=== PATIENT | male | born 1945 | race Caucasian/White ===

== ENCOUNTER → 2024-04-25 06:41 | Day surgery (SDC) | payer OTHER, SELFPAY | LOC: GI 06:41 | PROVIDERS: ATTENDING PHYSICIAN Specialist | DX: Z12.11 Encounter for screening for malignant neoplasm of colon (principal); D12.3 Benign neoplasm of transverse colon; K57.30 Diverticulosis of large intestine without perforation or abscess without bleeding; Z86.010 Personal history of colon polyps | CPT/HCPCS: 45380; 88305 ==

== ENCOUNTER → 2024-10-31 10:34 | Outpatient (REF) | payer OTHER, SELFPAY | LOC: HWRAD 10:34 | PROVIDERS: ATTENDING PHYSICIAN Physician Assistant Medical | DX: M25.552 Pain in left hip (principal) | CPT/HCPCS: 73502 ==

== ENCOUNTER → 2025-03-19 10:11 | Outpatient (REF) | payer OTHER, SELFPAY ==
[2025-03-19 11:08] LABS: % Basophils 0.6 % (0-2); % Eosinophils 4.1 % (0-6); % Immature Granulocytes 0.3 % (0-0.5); % Monocytes 10.3 % (1.7-9.3); % Neutrophils 70.7 % (42.2-75.2); Absolute Eosinophils 0.3 10^3/uL (0-0.7); Absolute Lymphocytes 0.9 10^3/uL (1.2-3.4); Absolute Monocytes 0.7 10^3/uL (0.1-0.6); Absolute Neutrophils 4.6 10^3/uL (1.4-6.5); Hemoglobin 14.6 g/dL (13.0-18.0); Mean Corp Hgb Conc. 32.4 g/dL (33.0-37.0); Mean Corpuscular Hgb 31.6 pg (27.0-31.0); Mean Corpuscular Volume 97.4 fL (80.0-94.0); Nucleated Red Blood Cells % 0 % (-); Platelet Count 241 10^3/uL (130-400); Red Blood Cell Count 4.62 10^6/uL (4.70-6.10); White Blood Cell Count 6.5 10^3/uL (4.8-10.8)
[2025-03-19 11:55] LABS: Blood Urea Nitrogen 19 mg/dl (9-20); Calcium 9.5 mg/dl (8.4-10.2); Carbon Dioxide 26 mmol/L (22-30); Chloride 108 mmol/L (98-107); Glucose 100 mg/dl (70-99); Potassium 4.6 mmol/L (3.5-5.1); Sodium 141 mmol/L (135-145); eGFR > 60.00
== END ==
LOC: REG 10:11
PROVIDERS: ATTENDING PHYSICIAN Specialist
DX: Z01.818 Encounter for other preprocedural examination (principal)
CPT/HCPCS: 36415; 80048; 85025; 93005

== ENCOUNTER 2025-05-12 17:58 | Outpatient (RCR) | payer OTHER, SELFPAY | END 2025-05-12 23:59 | disposition home or self-care (01) | LOC: RPT 17:58 | PROVIDERS: ATTENDING PHYSICIAN Specialist; FAMILY PHYSICIAN Internal Medicine | DX: Z47.1 Aftercare following joint replacement surgery (principal); Z96.642 Presence of left artificial hip joint; Z73.6 Limitation of activities due to disability | CPT/HCPCS: 97110; 97140; 97162; 97530 ==

== ENCOUNTER 2025-05-13 22:31 | Inpatient (IN) | payer OTHER, SELFPAY ==
[2025-05-13] VITALS (7 sets, daily range): BP systolic 113–140; BP diastolic 63–76; BMI 22.6
[2025-05-13 20:02] LABS: Hematocrit 17.7 % (39.0-52.0); Hemoglobin 5.8 g/dL (13.0-18.0); Mean Corp Hgb Conc. 32.8 g/dL (33.0-37.0); Mean Corpuscular Volume 97.3 fL (80.0-94.0); Nucleated Red Blood Cells % 0.2 % (-); Platelet Count 282 10^3/uL (130-400); Red Cell Dist. Width 13.4 % (11.5-14.5)
[2025-05-13 20:08] LABS: INR 1.11; PT 14.8 Sec (11.4-14.6)
[2025-05-13 20:13] LABS: ALT (SGPT) 22 U/L (0-50); AST (SGOT) 23 U/L (17-59); Albumin 3.3 g/dl (3.5-5.0); Alkaline Phosphatase 84 U/L (38-126); Blood Urea Nitrogen 39 mg/dl (9-20); Calcium 8.2 mg/dl (8.4-10.2); Carbon Dioxide 23 mmol/L (22-30); Chloride 109 mmol/L (98-107); Glucose 186 mg/dl (70-99); Potassium 3.9 mmol/L (3.5-5.1); Sodium 135 mmol/L (135-145); Total Protein 5.2 g/dl (6.3-8.2); eGFR > 60.00
[2025-05-13 20:25] LABS: Troponin I 0.023 ng/ml
--- NOTE | 2025-05-13 22:00 | ED.GENMED ---
History of Present Illness
General
Chief Complaint: Abnormal Lab Value
Source: patient and spouse
Exam Limitations: none
Time Seen by Provider: 05/13/25 21:01
Nursing documentation reviewed up to this point in time: agreed with
History of Present Illness
History of Present Illness:
Patient status post left hip replacement with Dr. Chiu, presents to ED secondary to worsening generalized weakness, dizziness, and shortness of breath over the past 3 days. Denies fever or chills. Denies nausea or vomiting. Denies increased
leg pain or swelling. However, patient has noticed mild left ankle swelling. Denies chest pain. Denies new trauma. Denies loss of appetite. Patient has been taking aspirin 325 mg daily since surgery. Denies previous history of similar symptoms.
Past History
Past History
ED Past Medical History: Other (Tongue resection for cancer, left neck lymph node resection,)
Social History
Tobacco: Smoker
Alcohol: None
Family History
Family History: Unable to obtain
Review of Systems
Review of Systems
Allergies reviewed?: Yes
All Other Systems: ROS reviewed and negative except as documented in HPI and ROS
Constitutional: Reports no symptoms
Respiratory: Reports trouble breathing
Cardiac: Reports no symptoms; Denies chest pain
ABD/GI: Reports no symptoms; Denies vomiting, diarrhea or bloody stools
: Reports no symptoms; Denies bleeding
Musculoskeletal: Reports no symptoms
Neurological: Reports dizzy and weakness
Phy Exam
Physical Exam
Physical Exam:
Physical Exam
General: no apparent distress, not acutely ill. afebrile
Head: nc/at. eomi
Neck: supple. normal range of motion.
Heart: s1/s2 regular rate and rhythm
Lungs: no acute respiratory distress. clear bilaterally
Abdomen: normal bowel sounds. not tender. rectal exam (maroon stool, grossly heme positive)
Neuro: alert and oriented x 3. no focal neurological deficits
Skin: no rash, pale appearing
Psychiatric: well kept. interactive and cooperative
Extremities: no edema. no calf tenderness.
Course
Orders/Labs/Results
Orders:
Orders
05/13/25 19:41
Electrocardiogram (*1) Urgent
Reason for Study: Other
Other Reason for Exam: Respiratory Distress
Cardiac Monitoring- Treatment ONCE
EKG- Treatment ONCE
IV Insert/Care/Rem.- Treatment PRN
CR Chest - 2 Views Urgent
Comment:
Reason For Exam: respiratory distress
O2 Therapy [RESP] Urgent
Titrate/Wean O2 to maintain O2 sat greater than (%): 93
Special Instructions: TO MAINTAIN CONTINUOUS O2 SATS >/= 93%
Pulse Ox/cont/shift [RESP] Urgent
Quantity: 1
Special Instructions: continuous pulse ox
05/13/25 19:52
Complete Blood Count/With Diff Urgent
Comprehensive Metabolic Panel Urgent
Ferritin Urgent
Comment: ADD ON
Folate Urgent
Comment: ADDED
Iron Urgent
Comment: ADD ON
Prothrombin Time Urgent
Total Iron Binding Urgent
Comment: ADD ON
Troponin I Urgent
Vitamin B12 Urgent
Comment: ADDED
05/13/25 21:06
Type And Crossmatch [Type+Screen] Urgent
05/13/25 21:24
ABO2 Urgent
BBK Wristband Number:
Associate notified that ABO2 has been ordered: [id number]
Date: 05/13/25
Time: 21:16
Executive Coordinator ID: [id number]
05/13/25 22:00
* Blood Bank Products Urgent
Blood Bank Products: *Packed RBC Leuko(PRBC's)
Quantity: 2
Transfuse Today: Yes
Reason: Bleeding
IV Insert/Care/Rem.- Treatment PRN
Pantoprazole [Protonix IV] 40 mg IV NOW STA
05/13/25 22:24
Admit/Transfer Patient As Directed
Co-Sign Provider:
Level of Care: Inpatient admission
Assign to:: Telemetry
Physician / Group: desire
Diagnosis: UGIB
Reason for Telemetry: Arrhythmia
Date to Stop Telemetry: 05/16/25
Time to Stop Telemetry: 11:00
Reason for Hospitalization: UGIB
Expected length of stay greater than two midnights?: Yes
ELOS- Estimated Length of Stay in days: 2
I certify the patient meets the requirements for IP care: Yes
PRN Pain Medication Management As Directed
May give lesser potent ordered pain med per pt: Yes
preference::
Protocol:: Medication orders for pain may be administered in a
manner that supports deferring to patient preference
when the pt is:
- Requesting an ordered lesser potent pain medication.
Least to most potent pain medications are defined
as: acetaminophen < NSAID < tramadol < opioids
(morphine, oxycodone, hydromorphone).
- Requesting a lesser dose of the same medication IF
ORDERED.
- Requesting a less intrusive route of administration
if both routes are prescribed by the provider (PO <
IV).
05/13/25 22:25
Code Status As Directed
Resuscitation Status: Full Code
05/14/25 02:24
Add On- LAB Routine
Tests Added?: b12, folate, iron, ferritin, tibc
GASTROINTESTINAL CONSULT Routine
Consulting Provider: Carlton Montoya
Was physician already notified: Yes
Activity As Directed
Activity Level: As Tolerated
Pneumatic Compression Sleeves As Directed
Type: Knee high
Vital Signs As Directed
Frequency: Per unit guidelines
DX Deep Vein Thrombosis Video Routine
05/14/25 Breakfast
NPO
Allow oral meds: Yes
Allow clear liquids: Sips of Clears
05/14/25 08:00
Pantoprazole [Protonix IV] 40 mg IV BID
05/14/25 08:05
Complete Blood Count/With Diff IN AM
Comprehensive Metabolic Panel IN AM
05/16/25 11:00
DC Protocol for Telemetry ONCE
Abnormal Lab Results
05/13/25 05/13/25
19:52 21:06
WBC 12.8 H 10^3/uL
(4.8-10.8)
RBC 1.82 L 10^6/uL
(4.70-6.10)
Hgb 5.8 L* g/dL
(13.0-18.0)
Hct 17.7 L* %
(39.0-52.0)
MCV 97.3 H fL
(80.0-94.0)
MCH 31.9 H pg
(27.0-31.0)
MCHC 32.8 L g/dL
(33.0-37.0)
Abs Immat Gran (auto) 0.1 H 10^3/uL
(0-0.05)
Absolute Neuts (auto) 10.7 H 10^3/uL
(1.4-6.5)
Absolute Lymphs (auto) 1.1 L 10^3/uL
(1.2-3.4)
Absolute Monos (auto) 0.7 H 10^3/uL
(0.1-0.6)
Neutrophils % 83.9 H %
(42.2-75.2)
Lymphocytes % 8.6 L %
(20.5-51.1)
PT 14.8 H Sec
(11.4-14.6)
Chloride 109 H mmol/L
(98-107)
BUN 39 H mg/dl
(9-20)
Glucose 186 H mg/dl
(70-99)
Calcium 8.2 L mg/dl
(8.4-10.2)
Total Protein 5.2 L g/dl
(6.3-8.2)
Albumin 3.3 L g/dl
(3.5-5.0)
Crossmatch IS Only See Detail
05/13/25 19:52
05/13/25 19:52
Vital Signs
Initial and Last Documented VS:
Initial Vital Signs
Temp Pulse Resp BP Pulse Ox
97.8 F 100 18 113/74 100
05/13/25 19:35 05/13/25 19:35 05/13/25 19:35 05/13/25 19:35 05/13/25 19:35
Last Documented Vital Signs
Temp Pulse Resp BP Pulse Ox
97.8 F 65 12 144/83 100
05/14/25 13:45 05/14/25 14:15 05/14/25 14:15 05/14/25 14:15 05/14/25 14:15
MDM/Problems Addressed
MDM/Problems Addressed:
H&H noted, significant anemia compared to blood work from March 2025.
Blood transfusion consent in the chart. 2 units of PRBC ordered. Protonix IV given.
Discussed with on-call GI physician, Dr. Montoya, via [facility] text. Patient will be admitted for further evaluation and treatment.
*Pulse Oximetry
SaO2: 100
Oxygen Mode of Delivery: Room air
Patient hypoxic: no
*Critical Care Note
Total Time (30-74mins, 75-104mins- exclusive of procedures): Not Applicable
ED Attending Note
-
Portions of this chart may have been created with voice recognition software.� Occasional wrong word or��sound alike� substitutions may have occurred due to the inherent limitations of voice recognition software.
Discharge Plan
Departure
Patient Disposition: Admit
Date of Disposition: 05/13/25
Time of Disposition: 22:05
Admit to: Telemetry
Presentation/result/management discussed w/ accepting MD/DO: Hospitalist
Discharge Problem:
GI bleed, Anemia
Interventions
Interventions:
*Risk Screen - Suicide Last Done: 05/13/25 19:35
*General Assessment Last Done: 05/13/25 19:35
*Neglect/Abuse Screening Last Done: 05/13/25 19:35
*ED- Fall Risk Assessment Last Done: 05/13/25 19:35
*ED COVID-19 Vaccine History Last Done: 05/13/25 20:43
*Nursing Disposition Last Done: 05/14/25 02:42
ED- Neurological Assessment Last Done: 05/13/25 20:43
ED- Cardiac Assessment Last Done: 05/13/25 20:43
ED Swallowing Screen Last Done: 05/13/25 20:43
Discharge Date and Time
Discharge Date/Time: 05/14/25 02:43
[2025-05-13] MEDS: PROTONIX IV 40 MG IV (22:08)
--- NOTE | 2025-05-13 22:31 | HPS.HSE ---
Family Physician
-
Family Physician: Gabriela Mosqueda PA-C
Chief Complaint
-
dizziness, shortness of breath
History of Present Illness
79-year-old male past medical history of melanoma, osteoarthritis status post left hip surgery, hypercholesteremia, presenting for progressive weakness and dizziness and shortness of breath. No chest pain. He underwent left hip surgery [address] Chiu. She was started on 325 mg aspirin postoperatively. He has been taking ibuprofen for the past month for hip pain, denies abdominal pain. Occasional nausea but no vomiting. He did not notice any black stool or blood in the
stool.
He had colonoscopy 6 months ago which was normal.
Drinks alcohol occasionally. Denies smoking.
No family history of GI issues.
Medical History
Past Medical History
Past Medical History: Reports Other (melanoma, osteoarthritis status post left hip surgery, hypercholesteremia)
Past Surgical History: Reports None
Social History
Tobacco: Non-smoker
Alcohol: None
Drug: None
Family History
Family History: Not pertinent
Allergies / Home Medications
Allergies reflects when Allergies were last updated in [facility].
Home Medications with original date entered in [facility]
Allergy/Medication List:
Allergies
Allergy/AdvReac Type Severity Reaction Status Date / Time
piperacillin (From Zosyn) Allergy Hives Verified 08/02/21 08:22
tazobactam (From Zosyn) Allergy Hives Verified 08/02/21 08:22
Home Medications
apixaban 5 mg tablet (Eliquis) 5 mg PO BID 07/29/21
simvastatin 40 mg tablet 40 mg PO QPM 07/29/21
acetaminophen 500 mg tablet (Tylenol Extra Strength) 1,000 mg (2 x 500 mg) PO Q6HPRN PRN mild pain #1 tab 08/02/21
oxycodone 5 mg tablet 5 mg PO Q4HPRN PRN breakthrough/severe pain #7 tabs 08/02/21
polyethylene glycol 3350 17 gram oral powder packet 17 grams PO DAILYPRN PRN constipation #1 packet 08/02/21
Review of Systems
-
History Source: Patient
A 12 point ROS was completed and negative except as noted: Yes
Constitutional: Reports No Symptoms
EENT: Reports No Symptoms
Respiratory: Reports See HPI
Cardiac: Reports No Symptoms
Abdomen/GI: Reports No Symptoms
: Reports No Symptoms
Musculoskeletal: Reports No Symptoms
Skin: Reports No Symptoms
Neurological: Reports No Symptoms
Endocrine: Reports No Symptoms
Hematologic/Lymphatic: Reports No Symptoms
Psych: Reports No Symptoms
Physical Exam
Vital Signs
Vital Signs
Temp Pulse Resp BP Pulse Ox
97.8 F 92 18 133/73 100
05/13/25 19:35 05/13/25 20:52 05/13/25 19:35 05/13/25 20:51 05/13/25 22:02
Physical Exam
General: Well Developed, Well Nourished and No Apparent Distress
HEENT: NormoCephalic, Moist mucous membranes and Atraumatic
Respiratory: Clear
Cardiac: S1/S2 and Regular Rhythm; No Murmur or Rub
GI: Soft, Non Tender, Non Distended and Normal Bowel Sounds; No Organomegaly
Rectal: Deferred by Provider
Musculoskeletal: No Clubbing, No Cyanosis and No Edema
Skin: No Rash
Neuro: Nonfocal/grossly intact
Laboratory Results
-
05/13/25 19:52
05/13/25 19:52
Laboratory Results
PT 14.8 Sec (11.4-14.6) H 05/13/25 19:52
INR 1.11 05/13/25 19:52
Total Bilirubin 0.3 mg/dl (0.2-1.3) 05/13/25 19:52
AST 23 U/L (17-59) 05/13/25 19:52
ALT 22 U/L (0-50) 05/13/25 19:52
Alkaline Phosphatase 84 U/L (38-126) 05/13/25 19:52
Troponin I 0.023 ng/ml 05/13/25 19:52
Data Reviewed
-
Lab Data: Labs Reviewed by me
Old Records: Reviewed
Impression/Plan
-
IMPRESSION:
PLAN:
# Acute blood loss anemia
# Upper GI bleeding secondary to NSAIDs/aspirin
-Maroon-colored stool
-Appears macrocytic
- Hemoglobin 5.8
-Hold aspirin
- 2 units of blood, with goal of hemoglobin above 8 before EGD tomorrow as per GI
- Check iron studies, B12 and folate
- Protonix 40 twice daily
- N.p.o. past midnight
Left hip surgery 2 weeks ago
- Hold aspirin started postoperatively
-Supposed to have lucía removed tomorrow, ortho should be notified tomorrow
History of throat cancer
Melanoma
Osteoarthritis
Hypercholesterolemia
Full code
DVT prophylaxis-SCDs
N.p.o.
[2025-05-13 23:35] LABS: Iron 67 ug/dl (49-181)
[2025-05-13 23:44] LABS: Total Iron Binding Capacity 285 ug/dl (261-462)
[2025-05-14] VITALS (28 sets, daily range): BP systolic 103–151; BP diastolic 55–91; BMI 24.2
[2025-05-14 00:07] LABS: Ferritin 116.0 ng/ml (17.9-464.0)
[2025-05-14] MEDS: TYLENOL 650 MG PO ×2 (04:24→08:36)
[2025-05-14 04:49] LABS: Folate 15.0 ng/ml (2.76-20); Vitamin B12 333 pg/ml (239-931)
--- NOTE | 2025-05-14 06:13 | CON.GI ---
Consultation
-
Date/Time Consultation Requested: 05/14/25, 223
Date/Time Consultation Performed: 05/14/25, 612
Requesting Provider: Barney Ashton
Performing Provider: Carlton Montoya
Reason for Consultation: UGIB
Medical History
Chief Complaint / HPI
Chief Complaint: Dizziness, SOB
History of Present Illness:
Mr. Norton is a 79 y.o male with a past medical history of hypercholesteremia, melanoma, colon polyps, and osteoarthritis s/p recent left-hip surgery who presented to the ED with progressive weakness and SOB. Found to have maroon-colored stools and
Hgb 5.8 concerning for UGIB. GI has been consulted for further evaluation and management.
Patient states he underwent left hip surgery [address] Chiu and was started on 325 mg aspirin postoperatively. He has been taking significant ibuprofen for the past month for hip pain as well, but denies abdominal pain. Does note
mild nausea but no vomiting. Denies any melena or bloody stoolsl. He had colonoscopy 6 months ago which was notable for one small colon polyp (path w/ TA) and diverticulosis, but otherwise normal. Prior EGD back on 01/2012 which was grossly
unremarkable. He follows closely with his primary [employer], Dr. Rodriguez. Otherwise, he denies any prior history of GI bleeding in the past. He denies any significant alcohol use. No other antiplatelets or He anticoagulants. He does note
previously being on eliquis in the past, however he has not been on this over the past 4-5 years. He is hoping to go home today as he notes his is having a cardiac ablation tomorrow.
In the ED, patient was afebrile and HD-stable. Labs notable for BUN 39 and Multiskill Operator 0.9 and normal LFTs. CBC with WBC 12.8, Hgb 5.8 (previously 14.6 on 03/19/25), and plts 282. INR 1.11. He was started on IV PPI and ordered 2 uPRBCs and admitted to
medicine for further management.
Past Medical History
Past Medical History: Other (melanoma, osteoarthritis status post left hip surgery, hypercholesteremia, colon polyps)
Past Surgical History: Other (L hip surgery)
Social History
Tobacco: Non-Smoker
Alcohol: None
Drug: None
Family History
Family History: Reviewed & Not Pertinent
Allergies / Home Medications
Allergy/AdvReac Type Severity Reaction Status Date / Time
piperacillin (From Zosyn) Allergy Hives Verified 08/02/21 08:22
tazobactam (From Zosyn) Allergy Hives Verified 08/02/21 08:22
�Medication �Instructions �Recorded
simvastatin 40 mg tablet 40 mg PO QPM 07/29/21
acetaminophen 500 mg tablet 1,000 mg (2 x 500 mg) PO Q6HPRN 08/02/21
(Tylenol Extra Strength) PRN mild pain #1 tab
oxycodone 5 mg tablet 5 mg PO Q4HPRN PRN 08/02/21
breakthrough/severe pain #7 tabs
polyethylene glycol 3350 17 gram 17 grams PO DAILYPRN PRN 08/02/21
oral powder packet constipation #1 packet
Review of Systems
-
All other systems: A 12 pt ROS was Negative except as stated above in HPI
Vital Signs
Temp Pulse Resp BP Pulse Ox
97.9 F 75 18 128/72 99
05/14/25 06:02 05/14/25 06:02 05/14/25 06:02 05/14/25 06:02 05/14/25 06:02
Physical Exam
Exam
General: Well Developed, Well Nourished and No Apparent Distress
HEENT: Normocephalic, Anicteric and Moist Mucous Membranes
Respiratory: Other (Normal WOB on room air)
GI: Soft, Non Tender and Non Distended
Skin: Warm
Neuro: AO x 3 and Nonfocal/Grossly Intact
Psych: Calm
Results
WBC 12.8 10^3/uL (4.8-10.8) H 05/13/25 19:52
Hgb 5.8 g/dL (13.0-18.0) L* 05/13/25 19:52
Hct 17.7 % (39.0-52.0) L* 05/13/25 19:52
MCV 97.3 fL (80.0-94.0) H 05/13/25 19:52
Plt Count 282 10^3/uL (130-400) 05/13/25 19:52
Absolute Neuts (auto) 10.7 10^3/uL (1.4-6.5) H 05/13/25 19:52
PT 14.8 Sec (11.4-14.6) H 05/13/25 19:52
INR 1.11 05/13/25 19:52
Sodium 135 mmol/L (135-145) 05/13/25 19:52
Potassium 3.9 mmol/L (3.5-5.1) 05/13/25 19:52
Chloride 109 mmol/L (98-107) H 05/13/25 19:52
Carbon Dioxide 23 mmol/L (22-30) 05/13/25 19:52
BUN 39 mg/dl (9-20) H 05/13/25 19:52
Creatinine 0.9 mg/dL (0.7-1.3) 05/13/25 19:52
Calcium 8.2 mg/dl (8.4-10.2) L 05/13/25 19:52
Total Bilirubin 0.3 mg/dl (0.2-1.3) 05/13/25 19:52
AST 23 U/L (17-59) 05/13/25 19:52
ALT 22 U/L (0-50) 05/13/25 19:52
Alkaline Phosphatase 84 U/L (38-126) 05/13/25 19:52
Diagnostic Image Results: As detailed above
Assessment / Plan
-
Mr. Norton is a 79 y.o male with a past medical history of hypercholesteremia, melanoma, colon polyps, and osteoarthritis s/p recent left-hip surgery who presented to the ED with progressive weakness and SOB. Found to have maroon-colored stools and
Hgb 5.8 concerning for UGIB. GI has been consulted for further evaluation and management.
#UGIB
#Maroon Colored Stool
#Symptomatic Anemia
#Acute Blood Loss Anemia
#Recent ASA/NSAID Use
Impression: Patient presenting with symptomatic anemia and found to have maroon colored stools in the ED along with elevated BUN (39) and acute blood loss anemia with Hgb 5s (from baseline 14s). Etiology most consistent with an acute UGIB likely
secondary to NSAID-induced PUD given his ASA and NSAIDs. He denies any prior history of GI bleeding in the past and no other concern for LGIB. Currently he remains HD-stable without evidence of compensatory tachycardia and denies any further bloody
stools since admission. He has been transfused 2 uPRBCs pending repeat CBC. He would benefit from an EGD for further evaluation for both diagnostic and potential therapeutic purposes.
Recommendations:
- Keep strict NPO, ensure two large bore IVs
- F/u post-transfusion CBC, transfuse for goal Hgb > 8.0
- Trend Hgb with serial CBC
- Agree with anemia w/u given macrocytic anemia
- IV PPI 40 mg BiD
- Plan for EGD later today for further evaluation of his maroon colored stools and suspected UGIB. See EGD report for additional findings and recommendations
- Reviewed benefits and risks of endoscopy at bedside
- Strict avoidance of all NSAIDs, aspirin remains on hold
- Rest of care as per primary team
GI will continue to follow. Please call with any questions or concerns.
Data Reviewed
-
Old Records: Reviewed
-
-
Thank you for consultation and allowing me to participate in the patient's care. Please call the environmental field services technician GI physician during the after hours with any questions or concerns.
[2025-05-14] MEDS: NSS (PRESERVATIVE FREE) 10 ML IV (07:43)
[2025-05-14] MEDS: PROTONIX IV 40 MG IV (07:43)
[2025-05-14 09:24] LABS: Hematocrit 21.0 % (39.0-52.0); Hemoglobin 7.1 g/dL (13.0-18.0); Mean Corp Hgb Conc. 33.8 g/dL (33.0-37.0); Mean Corpuscular Volume 92.5 fL (80.0-94.0); Nucleated Red Blood Cells % 0 % (-); Platelet Count 225 10^3/uL (130-400); Red Cell Dist. Width 15.1 % (11.5-14.5)
[2025-05-14 09:53] LABS: ALT (SGPT) 22 U/L (0-50); AST (SGOT) 22 U/L (17-59); Albumin 2.9 g/dl (3.5-5.0); Alkaline Phosphatase 79 U/L (38-126); Blood Urea Nitrogen 31 mg/dl (9-20); Calcium 8.2 mg/dl (8.4-10.2); Carbon Dioxide 21 mmol/L (22-30); Chloride 113 mmol/L (98-107); Estimated Creatinine Clearance 84 ml/min; Glucose 105 mg/dl (70-99); Potassium 4.0 mmol/L (3.5-5.1); Sodium 138 mmol/L (135-145); Total Protein 4.8 g/dl (6.3-8.2); eGFR > 60.00
[2025-05-14 14:27] LABS: Hematocrit 20.2 % (39.0-52.0); Hemoglobin 6.6 g/dL (13.0-18.0)
--- NOTE | 2025-05-14 15:05 | W.PN.HOSP.TC ---
Today's Communication/Plan
-
Transferred to IMU because of significant upper GI bleed
Follow H&H
Start on IV PPI drip
Keep NPO.
Assessment / Plan
Assessment / Plan
# Acute blood loss anemia
# Acute upper GI bleeding
#Bleeding duodenal ulcers
Status post EGD this morning which showed large amount of clotted blood in the gastric antrum and gastric body. He was also fresh red blood clot in the duodenal bulb and throughout the duodenum. There was a nonbleeding duodenal ulcer with a flat
pigmented spot. Nonbleeding duodenal ulcer with a clean ulcer base. Active oozing from the large duodenal ulcer with visible bleeding vessel noted and it was injected with epi and treated with cautery.
-Follow H&H posttransfusion.
- Start on IV PPI drip
-Hold aspirin
-Keep him n.p.o. for now.
Left hip surgery 2 weeks ago
- Hold aspirin started postoperatively
-Supposed to have lucía removedw, ortho should be notified tomorrow
History of throat cancer
Melanoma
Osteoarthritis
Hypercholesterolemia
Full code
DVT prophylaxis-SCDs
N.p.o.
Discussed with GI about the findings and treatment plan.
Will move to IMU for closer monitoring.
Total time spent on today's encounter was 52 minutes which included time spent in counseling the patient/family regarding diagnosis and treatment plan as listed above, goals of care, and symptom management. Case was discussed with nursing staff,
specialists, and care coordinators/case management. All labs and imaging personally reviewed by me. Remainder the time spent in detailed review of previous records, lab data, imaging, and other medical provider documentation.
Anticipated Discharge: > 48 hours
Subjective/Interval History
-
Date of Service: May 14, 2025
Seen in PACU. Patient had a EGD which showed blood in the stomach.
He denies any nausea, abdominal pain.
Denies any shortness of breath, chest pain or dizziness.
Objective Data
-
Labs:
Laboratory Results
05/14/25 05/14/25 05/14/25
08:05 14:11 14:11
WBC 9.4
Hgb 7.1 L D 6.6 L* Cancelled
Hct 21.0 L 20.2 L*
Plt Count 225 D
Sodium 138
Potassium 4.0
Chloride 113 H
Carbon Dioxide 21 L
BUN 31 H
Creatinine 0.8
Glucose 105 H
Calcium 8.2 L
Total Bilirubin 0.6
AST 22
ALT 22
Alkaline Phosphatase 79
05/14/25 05/14/25
14:11 22:00
WBC
Hgb Pending
Hct Cancelled Pending
Plt Count
Sodium
Potassium
Chloride
Carbon Dioxide
BUN
Creatinine
Glucose
Calcium
Total Bilirubin
AST
ALT
Alkaline Phosphatase
Vital Signs:
Vital Signs
Temp Pulse Resp BP Pulse Ox
97.8 F 65 12 144/83 100
05/14/25 13:45 05/14/25 14:15 05/14/25 14:15 05/14/25 14:15 05/14/25 14:15
I&O
05/13/25 05/14/25 05/15/25
06:59 06:59 06:59
Intake Total 500 / 500
Balance 500 / 500
Physical Exam
-
General: Comfortable
Respiratory: Clear to Auscultation and Non Labored Respirations; Negative Accessory Resp Muscle Use
Cardiac: Regular Rhythm and S1/S2; Negative Tachycardic
GI: Soft, Nontender, Nondistended and Normal Bowel Sounds
Musculoskeletal: No Edema
Neuro: AO x 3
Psych: Calm; Negative Confused
Data Reviewed
-
Labs: Labs Reviewed by me
[2025-05-14] MEDS: D5/0.45%NACL 1000 IV (15:39)
[2025-05-14] MEDS: PROTONIX 100 IV ×2 (15:39→23:13)
--- NOTE | 2025-05-14 16:15 | PTCARENOTE ---
Received patient into room 3351 from PACU. Pt is aaox3, pleasant. Pt reports nausea prior to arriving to the floor but is better now. Denies any pain. SR on the monitor. Vital signs stable. was at bedside and updated. Protonix gtt and IVF
infusing. made aware of blood count and ordered a unit of PRBCs. Assessment and care as documented.
--- NOTE | 2025-05-14 18:29 | PTCARENOTE ---
1 unit of PRBCs infusing, no reactions noted.
[2025-05-14] MEDS: NSS (PRESERVATIVE FREE) IV (20:49)
[2025-05-14 22:04] LABS: Glucose - Point of Care 116 mg/dl (70-99)
[2025-05-14 23:08] LABS: Hematocrit 21.9 % (39.0-52.0); Hemoglobin 7.3 g/dL (13.0-18.0)
[2025-05-15] VITALS (13 sets, daily range): BP systolic 121–157; BP diastolic 73–113; PULSE 73; O2SAT 99
--- NOTE | 2025-05-15 01:26 | PTCARENOTE ---
received patient from previous RN. Patient AAOx3. unit of PRBC transfusing when this RN came onto shift. Repeat H&H 7.3. TT BOWL TURNER results, will labs again in morning. Assessment and vital signs as charted. Call yip in reach.
[2025-05-15] MEDS: TYLENOL 650 MG PO ×4 (02:07→22:05)
[2025-05-15] MEDS: D5/0.45%NACL 1000 IV (05:23)
[2025-05-15 05:50] LABS: Hematocrit 21.2 % (39.0-52.0); Hemoglobin 7.1 g/dL (13.0-18.0)
--- NOTE | 2025-05-15 06:07 | W.PN.GI.CBS2 ---
Today's Communication / Plan
-
Stable H/h and normalization of BUN 31 -> 18 post-EGD. No signs to suggest recurrent UGIB, however still high risk given his ulcer (FC Ib). Favor transfusing additional 1 uPRBC given Hgb 7.1 and continue IV PPI gtt x 72 hrs. Okay to start CLD this
afternoon. See rest of care as outlined below.
Assessment / Plan
-
Mr. Norton is a 79 y.o male with a past medical history of hypercholesteremia, melanoma, colon polyps, and osteoarthritis s/p recent left-hip surgery who presented to the ED with progressive weakness and SOB. Found to have maroon-colored stools and
Hgb 5.8 concerning for UGIB. GI has been consulted for further evaluation and management.
#Brisk UGIB 2/2
#Duodenal Ulcers #NSAID-induced PUD
#Symptomatic Anemia
#Acute Blood Loss Anemia
#Recent ASA/NSAID Use
Impression: Patient presenting with symptomatic anemia and found to have maroon colored stools in the ED along with elevated BUN (39) and acute blood loss anemia with Hgb 5s (from baseline 14s). Etiology most consistent with an acute UGIB likely
secondary to NSAID-induced PUD given his ASA and NSAIDs. He denies any prior history of GI bleeding in the past and no other concern for LGIB. Currently he remains HD-stable without evidence of compensatory tachycardia and denies any further bloody
stools since admission. He has been transfused 2 uPRBCs on admission prior to EGD.
S/p EGD 05/14/25: Large amount of fresh red/clotted blood throughout stomach and duodenum which was cleared, large actively oozing ulcer with a visible oozing vessel (FC Ib) within duodenal bulb s/p epi injection/bipolar cautery and hemospray for
additional hemostasis, two other ulcers within duodenal bulb without high-risk stigmata (FC IIc and FC III) however also applied with hemospray given location, otherwise grossly normal
- S/p 3 uPRBCs with last transfusion for Hgb 6.6 (suspect lower/hemoconcentrated) with repeat Hgb 7.3. BUN now normalized 39 -> 31 -> 18 post-EGD along with stable Hgb 7.3 -> 7.1. Otherwise, without any melena, maroon colored stools or other signs
to suggest recurrent GI bleeding.
Recommendations:
- Keep NPO, okay to start CLD this afternoon (24 hrs post-EGD / Endoclot)
- Given 1 additional uPRBC this AM for Hgb 7.1
- Trend Hgb with CBC q 12 hrs
- IV PPI gtt (05/14- ) x 72 hrs
- No plans for a repeat EGD at this time as without signs to suggest recurrent GI bleeding
- Melena to be expected over next 24-48 hours. However, notify GI if concern for recurrent brisk bleeding (drop in Hgb, maroon stools, etc)
- Strict avoidance of all NSAIDs, aspirin remains on hold
- Avoidance of all anticoagulants/antiplatelets
- Rest of care as per primary team
GI will continue to follow. Please call with any questions or concerns.
Subjective
Subjective
Date of Service: May 15, 2025
- S/p EGD 05/14/25: Large amount of fresh red/clotted blood throughout stomach and duodenum which was cleared, large actively oozing ulcer with a visible oozing vessel (FC Ib) within duodenal bulb s/p epi injection/bipolar cautery and hemospray for
additional hemostasis, two other ulcers within duodenal bulb without high-risk stigmata (FC IIc and FC III) however also applied with hemospray given location, otherwise grossly normal
- Kept NPO and transferred to IMU
- BUN now normalized 39 -> 31 -> 18 post-EGD
- Hgb remains stable 7.3 -> 7.1 post-EGD
- Otherwise, no acute events overnight
Denies any melena or maroon colored bowel movements overnight or early this AM. No abdominal pain or nausea/vomiting.
Objective
Data Reviewed
Laboratory Data:
Laboratory Results
PT 14.8 Sec (11.4-14.6) H 05/13/25 19:52
INR 1.11 05/13/25 19:52
Total Bilirubin 0.6 mg/dl (0.2-1.3) 05/14/25 08:05
AST 22 U/L (17-59) 05/14/25 08:05
ALT 22 U/L (0-50) 05/14/25 08:05
Alkaline Phosphatase 79 U/L (38-126) 05/14/25 08:05
Vital Signs and I&O:
Vital Signs
Temp Pulse Resp BP Pulse Ox
97.6 F 63 17 140/74 95
05/15/25 05:16 05/15/25 05:15 05/15/25 05:15 05/15/25 04:00 05/15/25 05:15
I&O
05/13/25 05/14/25 05/15/25
06:59 06:59 06:59
Intake Total 500 / 500 300 / 300
Output Total 1200 / 1200
Balance 500 / 500 -900 / -900
Physical Exam
Physical Exam
HEENT: Anicteric and Moist mucous membranes
Cardiology: Other (RR on tele)
Pulmonary: Other (Normal WOB on room air)
GI: Soft, Non Distended and Non Tender
Extremities: No Edema
Neuro: Non Focal
[2025-05-15 06:50] LABS: Mean Corp Hgb Conc. 33.5 g/dL (33.0-37.0); Mean Corpuscular Volume 93.0 fL (80.0-94.0); Platelet Count 223 10^3/uL (130-400); Red Cell Dist. Width 16.8 % (11.5-14.5)
[2025-05-15 07:18] LABS: Blood Urea Nitrogen 18 mg/dl (9-20); Calcium 8.2 mg/dl (8.4-10.2); Carbon Dioxide 23 mmol/L (22-30); Chloride 113 mmol/L (98-107); Estimated Creatinine Clearance 95 ml/min; Glucose 110 mg/dl (70-99); Potassium 3.8 mmol/L (3.5-5.1); Sodium 137 mmol/L (135-145); eGFR > 60.00
[2025-05-15] MEDS: NSS (PRESERVATIVE FREE) IV ×2 (07:27→19:28)
--- NOTE | 2025-05-15 08:03 | W.PN.UPDATE ---
Update Note
Progress Note Update
Status post left total hip arthroplasty April 29, [address] Chiu. Unfortunately he has developed postoperative anemia and endoscopy has found bleeding ulcer. Appreciate medical teams efforts for patient. His left hip incision has small
hematoma. No warmth, erythema or pain. Incision was cleaned with Betadine and then skin closed removed. Steri-Strips placed along with Aquacel dressing. Hip range of motion revealed flexion 90 degrees, internal rotation 15 degrees, external
rotation 30 degrees all without pain. Calf is soft and nontender. Distal neurovascular was intact. He should continue with formal physical therapy, weightbearing as tolerated with walker and observe hip precautions. SCDs for DVT prophylactics.
Follow-up with Dr. Chiu in 2 weeks to check his progress
[2025-05-15] MEDS: PROTONIX 100 IV ×2 (09:20→19:28)
--- NOTE | 2025-05-15 09:20 | W.PN.HOSP.TC ---
Today's Communication/Plan
-
Start on clear liquid diet
Follow H&H
Continue with PPI IV drip
Assessment / Plan
Assessment / Plan
# Acute blood loss anemia
# Acute upper GI bleeding
#Bleeding duodenal ulcers
Status post EGD 05/14 morning which showed large amount of clotted blood in the gastric antrum and gastric body. He was also fresh red blood clot in the duodenal bulb and throughout the duodenum. There was a nonbleeding duodenal ulcer with a flat
pigmented spot. Nonbleeding duodenal ulcer with a clean ulcer base. Active oozing from the large duodenal ulcer with visible bleeding vessel noted and it was injected with epi and treated with cautery.
- Continue with IV PPI drip
-Hold aspirin
- H&H today this morning is 7.1. Patient is totally asymptomatic and hemodynamically stable. Normalized the BUN noted. Suspect no further active bleeding. Would favor holding transfusion. He already had 3 units of PRBC. Iron stores are
adequate. Repeat H&H later in the day and transfuse as needed. Aim to keep H&H more than 7.
Left hip surgery 2 weeks ago
- Hold aspirin started postoperatively
- Colony removed by Ortho today.
- Consider Lovenox for the next 2 weeks after discharge. Currently in sequential teds for DVT prophylaxis with GI bleed.
History of throat cancer
Melanoma
Osteoarthritis
Hypercholesterolemia
Full code
DVT prophylaxis-SCDs
Discussed with RN
Total time spent on today's encounter was 52 minutes which included time spent in counseling the patient/family regarding diagnosis and treatment plan as listed above, goals of care, and symptom management. Case was discussed with nursing staff,
specialists, and care coordinators/case management. All labs and imaging personally reviewed by me. Remainder the time spent in detailed review of previous records, lab data, imaging, and other medical provider documentation.
Anticipated Discharge: > 48 hours
Subjective/Interval History
-
Date of Service: May 15, 2025
Patient without any symptoms.
Denies any abdominal pain or discomfort. No nausea or hematemesis. No bowel movement or no rectal bleeding.
Denies any weakness or tiredness or fatigue.
Denies any chest pain or shortness of breath.
No lightheadedness.
Objective Data
-
Labs:
Laboratory Results
05/14/25 05/15/25 05/15/25
23:01 05:29 05:52
WBC 8.2 Cancelled
Hgb 7.3 L 7.1 L Cancelled
Hct 21.9 L 21.2 L Cancelled
Plt Count 223 Cancelled
Sodium 137
Potassium 3.8
Chloride 113 H
Carbon Dioxide 23
BUN 18
Creatinine 0.7
Glucose 110 H
Calcium 8.2 L
05/15/25
15:00
WBC Pending
Hgb Pending
Hct Pending
Plt Count Pending
Sodium
Potassium
Chloride
Carbon Dioxide
BUN
Creatinine
Glucose
Calcium
Vital Signs:
Vital Signs
Temp Pulse Resp BP Pulse Ox
97.6 F 63 17 140/74 95
05/15/25 07:05 05/15/25 05:15 05/15/25 05:15 05/15/25 04:00 05/15/25 05:15
I&O
05/14/25 05/15/25 05/16/25
06:59 06:59 06:59
Intake Total 500 / 500 300 / 300
Output Total 1200 / 1200
Balance 500 / 500 -900 / -900
Physical Exam
-
General: Comfortable
Respiratory: Clear to Auscultation and Non Labored Respirations; Negative Accessory Resp Muscle Use
Cardiac: Regular Rhythm and S1/S2; Negative Tachycardic
GI: Soft and Nontender
Neuro: AO x 3
Data Reviewed
-
Labs: Labs Reviewed by me
--- NOTE | 2025-05-15 09:48 | PTCARENOTE ---
Patient AAOx3. Reports pain in hip, tylenol given with relief. Protonix gtt infusing per orders. Currently NPO, with plans to start CLD at lunch. L hip dressing CDI, lucía removed by ortho today. VSS. Patient making needs known. Continuing to
closely monitor.
[2025-05-15 16:10] LABS: Hematocrit 23.5 % (39.0-52.0); Hemoglobin 7.9 g/dL (13.0-18.0); Mean Corp Hgb Conc. 33.6 g/dL (33.0-37.0); Mean Corpuscular Volume 94.4 fL (80.0-94.0); Platelet Count 232 10^3/uL (130-400); Red Cell Dist. Width 17.0 % (11.5-14.5)
--- NOTE | 2025-05-15 16:11 | CM ---
Patient with Hx Left hip surgery 2 weeks ago with Dx UGI bleed, anemia. Room air. Clear liquids. Receiving IVF, Protonix gtt. PT recommends outpt therapy.
Met with patient who resides with his in a 2 story house with 1 [address].
The patient was independent in ADLs and ambulation.
DME - [facility], [facility]
Prior VN, can't remember agency
SNF - none
PCP - Gabriela Mosqueda
Pharmacy - [facility], [place]
Spoke with daughter Sammy; patient already going to outpatient PT and he will resume at d/c.
No CM d/c needs identified.
Plan home.
[2025-05-15] MEDS: D5/0.45%NACL IV (18:43)
[2025-05-16] VITALS (14 sets, daily range): BP systolic 102–140; BP diastolic 52–86; PULSE 76; BMI 24.2
--- NOTE | 2025-05-16 01:41 | PTCARENOTE ---
Patient aao x3 at start of shift, affect pleasant, able to make needs known. Patient c/o pain 2/10 earlier this evening. PRN Tylenol administered with positive results. RN manpreet RAMOS, new order noted for ice to LLE to assist with pain control. Call
yip within reach, will continue to monitor patient closely.
[2025-05-16] MEDS: PROTONIX 100 IV ×2 (04:44→16:49)
[2025-05-16] MEDS: TYLENOL 650 MG PO ×4 (04:56→20:09)
[2025-05-16 05:02] LABS: Hematocrit 24.0 % (39.0-52.0); Hemoglobin 8.0 g/dL (13.0-18.0); Mean Corp Hgb Conc. 33.3 g/dL (33.0-37.0); Mean Corpuscular Volume 94.9 fL (80.0-94.0); Platelet Count 231 10^3/uL (130-400); Red Cell Dist. Width 17.3 % (11.5-14.5)
[2025-05-16] MEDS: NSS (PRESERVATIVE FREE) IV ×2 (07:43→19:46)
--- NOTE | 2025-05-16 12:00 | PTCARENOTE ---
Patient AAOx3, no complaints. Protonix infusing per orders. Patient making needs known. VSS. Will closely monitor.
--- NOTE | 2025-05-16 12:42 | W.PN.HOSP.TC ---
Today's Communication/Plan
-
Protonix drip. Monitor hemoglobin
Assessment / Plan
Assessment / Plan
Physical exam:
General: Well Developed, Well Nourished and No Apparent Distress
HEENT: Normocephalic, Atraumatic and Moist Mucous Membranes
Respiratory: Clear to Auscultation; Negative Wheezes, Rales or Rhonchi
Cardiac: Regular Rhythm and S1/S2
GI: Soft, Nontender and Nondistended
Musculoskeletal: No Clubbing, No Cyanosis and No Edema
Neuro: Awake, Alert and Oriented
Psych: Calm
A/P:
# Acute blood loss anemia
# Acute upper GI bleeding
#Bleeding duodenal ulcers
Status post EGD 05/14 morning which showed large amount of clotted blood in the gastric antrum and gastric body. He was also fresh red blood clot in the duodenal bulb and throughout the duodenum. There was a nonbleeding duodenal ulcer with a flat
pigmented spot. Nonbleeding duodenal ulcer with a clean ulcer base. Active oozing from the large duodenal ulcer with visible bleeding vessel noted and it was injected with epi and treated with cautery.
- Continue with IV PPI drip
-Hold aspirin
- H&H today this morning is 8.0 Patient is totally asymptomatic and hemodynamically stable. Normalized the BUN noted. Suspect no further active bleeding.
Left hip surgery 2 weeks ago
- Hold aspirin started postoperatively
- Mary Kay removed by Ortho yesterday
- Consider Lovenox for the next 2 weeks after discharge. Currently in sequential teds for DVT prophylaxis with GI bleed.
History of throat cancer
Melanoma
Osteoarthritis
Hypercholesterolemia
Full code
DVT prophylaxis-SCDs
Total time spent on today's encounter was 52 minutes which included time spent in counseling the patient/family regarding diagnosis and treatment plan as listed above, goals of care, and symptom management. Case was discussed with nursing staff,
specialists, and care coordinators/case management. All labs and imaging personally reviewed by me. Remainder the time spent in detailed review of previous records, lab data, imaging, and other medical provider documentation.
Anticipated Discharge: > 48 hours
Subjective/Interval History
-
Date of Service: May 16, 2025
Patient had dark bowel movement. Denies abdominal pain or nausea. Tolerating clear liquid diet.
Objective Data
-
Labs:
Laboratory Results
05/16/25
04:51
WBC 9.6
Hgb 8.0 L
Hct 24.0 L
Plt Count 231
Vital Signs:
Vital Signs
Temp Pulse Resp BP Pulse Ox
98.1 F 81 17 140/86 96
05/16/25 06:36 05/16/25 11:30 05/16/25 11:30 05/16/25 10:00 05/16/25 08:00
I&O
05/15/25 05/16/25 05/17/25
06:59 06:59 06:59
Intake Total 300 / 300
Output Total 1200 / 1200 1723 / 1723 575 / 575
Balance -900 / -900 -1723 / -1723 -575 / -575
--- NOTE | 2025-05-16 14:25 | W.PN.GI.CBS2 ---
Addendum entered and electronically signed by Olivia Ferrer MD 05/16/25 19:59:
I saw and examined the patient.
The F[employer]NACE [employer]DER or PA's note was reviewed and I agree with the note.
Comment: 79-year-old male past medical history as below presenting with progressive weakness and shortness of breath found to have hemoglobin of 5.8 in the setting of NSAIDs and high-dose aspirin after hip surgery. Underwent endoscopy with
[facility] May 14 and found to have active GI bleeding with large duodenal ulcers and visible vessel which was treated with epinephrine, cautery, Hemospray. Hemoglobin has remained stable. We discussed at length diagnosis of duodenal ulcers,
importance of avoiding NSAIDs. Plan for IV PPI drip until tomorrow and then can change to Protonix twice a day. On full liquid diet which can be advanced to low residue diet tomorrow if hemoglobin remains stable.
Original Note:
Today's Communication / Plan
-
As per plan
Assessment / Plan
-
Mr. Norton is a 79 y.o male with a past medical history of hypercholesteremia, melanoma, colon polyps, and osteoarthritis s/p recent left-hip surgery who presented to the ED with progressive weakness and SOB. Found to have maroon-colored stools and
Hgb 5.8 concerning for UGIB. GI has been consulted for further evaluation and management.
#Brisk UGIB 2/2
#Duodenal Ulcers #NSAID-induced PUD
#Symptomatic Anemia
#Acute Blood Loss Anemia
#Recent ASA/NSAID Use
Impression: Patient presenting with symptomatic anemia and found to have maroon colored stools in the ED along with elevated BUN (39) and acute blood loss anemia with Hgb 5s (from baseline 14s). Etiology most consistent with an acute UGIB likely
secondary to NSAID-induced PUD given his ASA and NSAIDs. He denies any prior history of GI bleeding in the past and no other concern for LGIB. Currently he remains HD-stable without evidence of compensatory tachycardia and denies any further bloody
stools since admission. He has been transfused 2 uPRBCs on admission prior to EGD.
S/p EGD 05/14/25: Large amount of fresh red/clotted blood throughout stomach and duodenum which was cleared, large actively oozing ulcer with a visible oozing vessel (FC Ib) within duodenal bulb s/p epi injection/bipolar cautery and hemospray for
additional hemostasis, two other ulcers within duodenal bulb without high-risk stigmata (FC IIc and FC III) however also applied with hemospray given location, otherwise grossly normal
- S/p 3 uPRBCs with last transfusion for Hgb 6.6 (suspect lower/hemoconcentrated) with repeat Hgb 7.3. BUN now normalized 39 -> 31 -> 18 post-EGD along with stable Hgb 7.3 -> 7.1. Otherwise, without any melena, maroon colored stools or other signs
to suggest recurrent GI bleeding. Hemoglobin remained stable and is increased to 8.0. No further signs of bleeding.
Recommendations:
-Start full liquid diet
- Check CBC this evening then daily.
-BMP in a.m.
- IV PPI gtt until 05/17/2025 ( 72 hrs), then can change to pantoprazole 40 mg twice daily
- No plans for a repeat EGD at this time as without signs to suggest recurrent GI bleeding
- Melena to be expected over next 24-48 hours. Will eventually turn to normal stool. Discussed that if after brown stool returns back to melena or red to notify.
- however, notify GI if concern for recurrent brisk bleeding (drop in Hgb, maroon stools, etc)
- Strict avoidance of all NSAIDs, aspirin remains on hold
- Avoidance of all anticoagulants/antiplatelets
- Rest of care as per primary team
GI will continue to follow. Please call with any questions or concerns.
Subjective
Subjective
Date of Service: May 16, 2025
Patient without any signs of active GI bleeding. Only had 1 bowel movement since endoscopy this was solid and dark. To be expected. Hemoglobin has remained completely stable. Hemoglobin 8.0 up from 7.9. Continues on pantoprazole drip. To be
continued at least until Monday. Tolerating clear liquid diet without any issues. No abdominal pain. Vital signs stable.
Objective
Data Reviewed
Laboratory Data:
Laboratory Results
05/16/25 04:51
05/15/25 05:52
Laboratory Results
PT 14.8 Sec (11.4-14.6) H 05/13/25 19:52
INR 1.11 05/13/25 19:52
Total Bilirubin 0.6 mg/dl (0.2-1.3) 05/14/25 08:05
AST 22 U/L (17-59) 05/14/25 08:05
ALT 22 U/L (0-50) 05/14/25 08:05
Alkaline Phosphatase 79 U/L (38-126) 05/14/25 08:05
Vital Signs and I&O:
Vital Signs
Temp Pulse Resp BP Pulse Ox
97.8 F 81 16 125/79 96
05/16/25 11:04 05/16/25 13:45 05/16/25 13:45 05/16/25 12:15 05/16/25 08:00
I&O
05/15/25 05/16/25 05/17/25
06:59 06:59 06:59
Intake Total 300 / 300
Output Total 1200 / 1200 1723 / 1723 575 / 575
Balance -900 / -900 -1723 / -1723 -575 / -575
Physical Exam
Physical Exam
HEENT: Anicteric
Cardiology: Normal Sinus Rhythm
Pulmonary: Clear
GI: Soft, Non Distended, Non Tender and Normal Bowel Sounds
Extremities: No Edema
Neuro: Non Focal
[2025-05-16 17:51] LABS: Hematocrit 23.9 % (39.0-52.0); Hemoglobin 7.9 g/dL (13.0-18.0); Mean Corp Hgb Conc. 33.1 g/dL (33.0-37.0); Mean Corpuscular Volume 95.6 fL (80.0-94.0); Platelet Count 230 10^3/uL (130-400); Red Cell Dist. Width 17.2 % (11.5-14.5)
[2025-05-16] MEDS: LIPITOR 20 MG PO (18:18)
--- NOTE | 2025-05-16 21:37 | PTCARENOTE ---
Patient aao x3 since start of shift. C/o pain 11/25 earlier this shift, verbalizes pain well controlled by tylenol and ice. PRN Tylenol administered around 20:00 with positiver effects noted. BS active x4, patient tolerated full diet well. NSR on the
monitor, lungs cta throughout, putting out clear yellow urine with use of urinal Patient using call yip appropriately, call yip within reach. Will continue to monitor patient closely.
[2025-05-17] VITALS (19 sets, daily range): BP systolic 89–145; BP diastolic 51–85
[2025-05-17] MEDS: PROTONIX 100 IV ×3 (01:35→19:56)
[2025-05-17] MEDS: TYLENOL 650 MG PO ×5 (02:28→20:56)
[2025-05-17 04:48] LABS: Hematocrit 22.3 % (39.0-52.0); Hemoglobin 7.4 g/dL (13.0-18.0); Mean Corp Hgb Conc. 33.2 g/dL (33.0-37.0); Mean Corpuscular Volume 94.9 fL (80.0-94.0); Platelet Count 215 10^3/uL (130-400); Red Cell Dist. Width 17.4 % (11.5-14.5)
[2025-05-17 05:06] LABS: Blood Urea Nitrogen 12 mg/dl (9-20); Calcium 8.4 mg/dl (8.4-10.2); Carbon Dioxide 25 mmol/L (22-30); Chloride 110 mmol/L (98-107); Estimated Creatinine Clearance 84 ml/min; Glucose 111 mg/dl (70-99); Potassium 4.3 mmol/L (3.5-5.1); Sodium 137 mmol/L (135-145); eGFR > 60.00
[2025-05-17] MEDS: NSS (PRESERVATIVE FREE) IV ×2 (07:39→19:48)
--- NOTE | 2025-05-17 11:00 | VATNOTE ---
primary RN alerted VAT RN of right arm infiltrate. R forearm red, tender, less than +1 edema. piv was removed prior to VAT assessment. arm elevated, heat applied. new iv placed. will cont to monitor
[2025-05-17 11:14] LABS: Hematocrit 26.7 % (39.0-52.0); Hemoglobin 8.8 g/dL (13.0-18.0)
--- NOTE | 2025-05-17 11:53 | W.PN.HOSP.TC ---
Addendum entered and electronically signed by Lopez York MD 05/17/25 16:00:
Also repeat another h/h stat
Addendum entered and electronically signed by Lopez York MD 05/17/25 15:37:
Hold on transfer out of IMU yet. Mildly hypotensive so we will give bolus 500 cc NS and reevaluate.
Original Note:
Today's Communication/Plan
-
PPI. Monitor hemoglobin
Assessment / Plan
Assessment / Plan
Physical exam:
General: Well Developed, Well Nourished and No Apparent Distress
HEENT: Normocephalic, Atraumatic and Moist Mucous Membranes
Respiratory: Clear to Auscultation; Negative Wheezes, Rales or Rhonchi
Cardiac: Regular Rhythm and S1/S2
GI: Soft, Nontender and Nondistended
Musculoskeletal: No Clubbing, No Cyanosis and No Edema
Neuro: Awake, Alert and Oriented
Psych: Calm
A/P:
# Acute blood loss anemia
# Acute upper GI bleeding
#Bleeding duodenal ulcers
Status post EGD 05/14 morning which showed large amount of clotted blood in the gastric antrum and gastric body. He was also fresh red blood clot in the duodenal bulb and throughout the duodenum. There was a nonbleeding duodenal ulcer with a flat
pigmented spot. Nonbleeding duodenal ulcer with a clean ulcer base. Active oozing from the large duodenal ulcer with visible bleeding vessel noted and it was injected with epi and treated with cautery.
- Continue with IV PPI drip
-Hold aspirin
- H&H today this morning is 7.4 Patient is totally asymptomatic and hemodynamically stable. Normalized the BUN noted. Suspect no further active bleeding. We repeated another H&H and hemoglobin came back at 8.8. Will advance diet and planning to
switch hemoglobin to twice a day either later today or in a.m. PT reeval for discharge disposition and can transfer out of IMU today
Left hip surgery 2 weeks ago
- Hold aspirin started postoperatively
- Mary Kay removed by Ortho yesterday
- Consider Lovenox for the next 2 weeks after discharge. Currently in sequential teds for DVT prophylaxis with GI bleed.
History of throat cancer
Melanoma
Osteoarthritis
Hypercholesterolemia
Full code
DVT prophylaxis-SCDs
Time spent 35 minutes
Anticipated Discharge: Within 24 hours
Subjective/Interval History
-
Date of Service: May 17, 2025
No abdominal pain nausea or vomiting. Tolerating diet. Afebrile
Objective Data
-
Labs:
Laboratory Results
05/17/25 05/17/25
04:25 11:05
WBC 9.5
Hgb 7.4 L 8.8 L
Hct 22.3 L 26.7 L
Plt Count 215
Sodium 137
Potassium 4.3
Chloride 110 H
Carbon Dioxide 25
BUN 12
Creatinine 0.8
Glucose 111 H
Calcium 8.4
Vital Signs:
Vital Signs
Temp Pulse Resp BP Pulse Ox
98.1 F 77 15 120/85 97
05/17/25 07:15 05/17/25 10:00 05/17/25 10:00 05/17/25 10:00 05/17/25 10:20
I&O
05/16/25 05/17/25 05/18/25
06:59 06:59 06:59
Output Total 1723 / 1723 1575 / 1575 475 / 475
Balance -1723 / -1723 -1575 / -1575 -475 / -475
[2025-05-17] MEDS: NSS 500 IV (15:40)
[2025-05-17] MEDS: LIPITOR 20 MG PO (16:45)
[2025-05-17 17:05] LABS: Hematocrit 23.2 % (39.0-52.0); Hemoglobin 7.6 g/dL (13.0-18.0)
--- NOTE | 2025-05-17 17:47 | W.PN.GI.CBS2 ---
Today's Communication / Plan
-
monitor hb and blood pressure and for overt bleeding
Assessment / Plan
-
79-year-old male past medical history as below presenting with progressive weakness and shortness of breath found to have hemoglobin of 5.8 in the setting of NSAIDs and high-dose aspirin after hip surgery. Underwent endoscopy with Dr. Montoya May 14
and found to have active GI bleeding with large duodenal ulcers and visible vessel which was treated with epinephrine, cautery, Hemospray. Hemoglobin has remained stable. Plan for IV PPI drip until tomorrow and then can change to Protonix twice a
day (technically today 72 hours will continue an extra day with hypotension. Will put on clears in AM to ensure hb remains stable.
Subjective
Subjective
Date of Service: May 17, 2025
No BM, Hb stable but did have an episode today felt weak and systolic BP dropped to 80s but he endorses not drinking much fluid
Objective
Data Reviewed
Laboratory Data:
Laboratory Results
05/17/25 16:56
05/17/25 04:25
Laboratory Results
PT 14.8 Sec (11.4-14.6) H 05/13/25 19:52
INR 1.11 05/13/25 19:52
Total Bilirubin 0.6 mg/dl (0.2-1.3) 05/14/25 08:05
AST 22 U/L (17-59) 05/14/25 08:05
ALT 22 U/L (0-50) 05/14/25 08:05
Alkaline Phosphatase 79 U/L (38-126) 05/14/25 08:05
Vital Signs and I&O:
Vital Signs
Temp Pulse Resp BP Pulse Ox
98.4 F 77 15 120/85 97
05/17/25 11:28 05/17/25 10:00 05/17/25 10:00 05/17/25 10:00 05/17/25 10:20
I&O
05/16/25 05/17/25 05/18/25
06:59 06:59 06:59
Output Total 1723 / 1723 1575 / 1575 475 / 475
Balance -1723 / -1723 -1575 / -1575 -475 / -475
Physical Exam
Physical Exam
GI: Non Distended and Non Tender
--- NOTE | 2025-05-17 18:37 | PTCARENOTE ---
pt tolerating regular diet without nausea or abdominal discomfort. oob to chair this am and ambulated to br with min assist. this afternoon pt bp lower than this morning. pt states he feels tired and weak but alert and conversant. physician made
aware. 500ml iv fluid bolus given with inprovement of bp. stat H/H sent per order and resulted 7.6.
[2025-05-18] VITALS (8 sets, daily range): BP systolic 101–139; BP diastolic 63–82
[2025-05-18] MEDS: TYLENOL 650 MG PO ×3 (00:56→09:26)
--- NOTE | 2025-05-18 03:00 | PTCARENOTE ---
Caring for patient overnight. aaox3, pleasant. C/o 10/25 pain in L hip, tylenol given prn. No SOB/other pain. Denies dizziness/lightheadedness. Standing at side of bed to use urinal. BP's stable. Protonix gtt running. No signs of bleeding. Will
monitor hgb in morning.
[2025-05-18] MEDS: PROTONIX 100 IV (04:04)
[2025-05-18 04:31] LABS: Hematocrit 23.7 % (39.0-52.0); Hemoglobin 7.7 g/dL (13.0-18.0); Mean Corp Hgb Conc. 32.5 g/dL (33.0-37.0); Mean Corpuscular Volume 96.7 fL (80.0-94.0); Platelet Count 230 10^3/uL (130-400); Red Cell Dist. Width 16.9 % (11.5-14.5)
[2025-05-18 04:56] LABS: Blood Urea Nitrogen 13 mg/dl (9-20); Calcium 8.3 mg/dl (8.4-10.2); Carbon Dioxide 24 mmol/L (22-30); Chloride 112 mmol/L (98-107); Estimated Creatinine Clearance 84 ml/min; Glucose 114 mg/dl (70-99); Potassium 4.3 mmol/L (3.5-5.1); Sodium 137 mmol/L (135-145); eGFR > 60.00
--- NOTE | 2025-05-18 08:05 | W.PN.GI.CBS2 ---
Today's Communication / Plan
-
adv diet change ppi to po discharge planning
Assessment / Plan
-
79-year-old male past medical history as below presenting with progressive weakness and shortness of breath found to have hemoglobin of 5.8 in the setting of NSAIDs and high-dose aspirin after hip surgery. Underwent endoscopy with Dr. Montoya May 14
and found to have active GI bleeding with large duodenal ulcers and visible vessel which was treated with epinephrine, cautery, Hemospray. Hemoglobin has remained stable.
Episode of hypotension seems to be related to dehydration (Hb went up to 8.8 at that time likely hemoconcentrated).
Change PPI to protonix 40 po bid x8 weeks then daily x4 weeks.
Advance diet to regular.
Avoid ALL NSAIDs
D/w hospitalist.
GI signing off pls call with ?s
Subjective
Subjective
Date of Service: May 18, 2025
no bm feels well
Objective
Data Reviewed
Laboratory Data:
Laboratory Results
05/18/25 04:08
05/18/25 04:08
Laboratory Results
PT 14.8 Sec (11.4-14.6) H 05/13/25 19:52
INR 1.11 05/13/25 19:52
Total Bilirubin 0.6 mg/dl (0.2-1.3) 05/14/25 08:05
AST 22 U/L (17-59) 05/14/25 08:05
ALT 22 U/L (0-50) 05/14/25 08:05
Alkaline Phosphatase 79 U/L (38-126) 05/14/25 08:05
Vital Signs and I&O:
Vital Signs
Temp Pulse Resp BP Pulse Ox
98.4 F 61 18 132/70 97
05/18/25 07:35 05/18/25 06:00 05/18/25 06:00 05/18/25 06:00 05/17/25 10:20
I&O
05/17/25 05/18/25 05/19/25
06:59 06:59 06:59
Intake Total 1819
Output Total 1575 / 1575 2175 / 2175
Balance -1575 / -1575 -355 / -355
Physical Exam
Physical Exam
GI: Non Distended and Non Tender
[2025-05-18] MEDS: NSS (PRESERVATIVE FREE) IV (08:19)
[2025-05-18 08:28] LABS: Glucose - Point of Care 116 mg/dl (70-99)
--- NOTE | 2025-05-18 08:37 | W.PN.HOSP.TC ---
Today's Communication/Plan
-
Discharge planning
Assessment / Plan
Assessment / Plan
Physical exam:
General: Well Developed, Well Nourished and No Apparent Distress
HEENT: Normocephalic, Atraumatic and Moist Mucous Membranes
Respiratory: Clear to Auscultation; Negative Wheezes, Rales or Rhonchi
Cardiac: Regular Rhythm and S1/S2
GI: Soft, Nontender and Nondistended
Musculoskeletal: No Clubbing, No Cyanosis and No Edema
Neuro: Awake, Alert and Oriented, no neurological deficit
Psych: Calm, normal judgment and insight
A/P:
# Acute blood loss anemia
# Acute upper GI bleeding
#Bleeding duodenal ulcers
Status post EGD 05/14 morning which showed large amount of clotted blood in the gastric antrum and gastric body. He was also fresh red blood clot in the duodenal bulb and throughout the duodenum. There was a nonbleeding duodenal ulcer with a flat
pigmented spot. Nonbleeding duodenal ulcer with a clean ulcer base. Active oozing from the large duodenal ulcer with visible bleeding vessel noted and it was injected with epi and treated with cautery.
- Change IV PPI drip to oral Protonix twice daily
-Hold aspirin
- H&H today this morning is 7.7 Patient is totally asymptomatic and hemodynamically stable. Normalized the BUN noted. Suspect no further active bleeding. Discussed with GI and he is cleared for discharge today. I also discussed with GI in terms
of any pharmacological prophylaxis and very high risk of rebleed and if anything may be we need to wait a few more days but at that time he would just need probably 1 week more-I discussed with patient and explained risks benefits and he prefers to
go without any pharmacological prophylaxis at this point. He does have some foot pumps at home that he will continue to use when nonambulatory.
Left hip surgery almost 3 weeks ago (April 29)
- Hold aspirin started postoperatively
- Felch removed by Ortho
- We went over different pharmacological prophylaxis options but patient prefers not to be on any of these pharmacological prophylaxis understanding very well risk benefits ratio. He does have foot pump at home and this would help some.
History of throat cancer
Melanoma
Osteoarthritis
Hypercholesterolemia
Full code
DVT prophylaxis-SCDs
Time spent 45 minutes
Anticipated Discharge: Today
Subjective/Interval History
-
Date of Service: May 18, 2025
No new complaints today. No nausea vomiting or abdominal pain.
Objective Data
-
Labs:
Laboratory Results
05/18/25
04:08
WBC 9.8
Hgb 7.7 L
Hct 23.7 L
Plt Count 230
Sodium 137
Potassium 4.3
Chloride 112 H
Carbon Dioxide 24
BUN 13
Creatinine 0.8
Glucose 114 H
Calcium 8.3 L
Vital Signs:
Vital Signs
Temp Pulse Resp BP Pulse Ox
98.4 F 61 18 132/70 97
05/18/25 07:35 05/18/25 06:00 05/18/25 06:00 05/18/25 06:00 05/17/25 10:20
I&O
05/17/25 05/18/25 05/19/25
06:59 06:59 06:59
Intake Total 1820 / 1820
Output Total 1575 / 1575 2175 / 2175 500 / 500
Balance -1575 / -1575 -355 / -355 -500 / -500
--- NOTE | 2025-05-18 08:44 | W.DCSUMMARY ---
Discharge Summary
Discharge Data
Date of Admission: 05/13/25
Date of Discharge: 05/18/25
Total time spent discharging patient (in min): 37
-
Pending Results: No
Hospital Course
Patient is 79 years old male who has a history of left hip surgery on 04/29 and came into the hospital with significant symptomatic anemia and evidence of upper GI bleed. GI was consulted. Patient was placed on PPI. His hemoglobin was 5.8 and
received multiple transfusions. His hemoglobin upon discharge is 7.7. Patient underwent upper endoscopy and found to have active GI bleeding with large duodenal ulcers and visible vessels treated with epinephrine and cautery and Hemospray. He
remained hospitalized due to his high risk of bleeding and he was monitored closely. GI cleared him for discharge. We also discussed risk benefits in terms of pharmacological prophylaxis for DVT prophylaxis given his recent hip surgery but after
discussions with patient and GI patient decided to be off pharmacological prophylaxis and he will continue with nonpharmacological prophylaxis in the form of foot pump and increase ambulation at home. He will also have a follow-up CBC as
outpatient. We continue to recommend avoid all NSAIDs. He has tolerated regular diet. Otherwise patient hemodynamically stable and he is eager to go home today. He will be discharged in stable condition today.
Discharge duration: 37 minutes
Discharge Plan
-
Patient Disposition: Home with Home Care
Discharge Diagnosis/Procedures: Acute GI bleed. Acute blood loss anemia.
Diet: Low Cholesterol
Activity: As tolerated
Blood Work: Please PCP to order CBC, BMP within 1 week
Referrals:
Gabriela Mosqueda PA-C [Family Provider, Internal Medicine] - in less than 1 week
Olivia Ferrer MD [Active, Gastroenterology] - in two to four weeks
Prescriptions:
New
pantoprazole 40 mg Tablet,Delayed Release (Dr/Ec)
40 mg PO BID 30 Days Qty: 60 0RF
(DME) Outpatient Physical Therapy
See Rx Instructions .Route .MEDSUPPLY Qty: 1 0RF
Rx Instructions:
As directed
Continued
simvastatin 40 MG tablet
40 mg PO QPM
polyethylene glycol 3350 17 GRAMS powder in packet
17 grams PO DAILYPRN PRN (Reason: constipation) Qty: 1 0RF
acetaminophen [Tylenol Extra Strength] 500 MG tablet
1,000 mg PO Q6HPRN PRN (Reason: mild pain) Qty: 1 0RF
oxycodone 5 MG tablet
5 mg PO Q4HPRN PRN (Reason: breakthrough/severe pain) Qty: 7 0RF
Discharge Date and Time
Print Language: AZERBAIJANI
--- NOTE | 2025-05-18 09:21 | VATNOTE ---
VAT Rounds: R arm infiltrate assessed by this RN at this time. Appears red and swollen. Pt reports continued tenderness. Arm elevated and heat applied. Pt educated on treatment of infiltrate and instructed to request assistance getting heat to apply
to arm several times a day/to apply heat several times per day if discharged. Will continue to monitor.
--- NOTE | 2025-05-18 12:14 | CM ---
Reviewed the chart notes and spoke with the patient at the bedside. CM consult for VN/homecare received. Patient will be returning to his outpatient PT. No VN needs.
Plan: Discharge to home when medically stable with outpatient PT.
--- NOTE | 2025-05-18 13:02 | PTCARENOTE ---
Assumed care of patient at beginning of this shift from previous RN. Ambulated to BR and OOB to chair without difficulty; hip precautions maintained. NSR on monitor. Tylenol administered as ordered for c/o pain 10/25. VAT RN in to assess previous
infiltrated from yesterday; warm compress and wrap applied. Patient elevated arm. See worklist for full assessment and vital signs.
== END 2025-05-18 14:48 | disposition home or self-care (01) | DRG 378 ==
LOC: IMU 22:31
PROVIDERS: Emergency Medicine; Internal Medicine; Nurse Practitioner; ADMITTING PHYSICIAN Hospitalist; ATTENDING PHYSICIAN Hospitalist; CONSULT PHYSICIAN Student in an Organized Health Care Education/Training Program; EMERGENCY PHYSICIAN Emergency Medicine; FAMILY PHYSICIAN Physician Assistant Medical
PROC: 30233N1 Transfusion of Nonautologous Red Blood Cells into Peripheral Vein, Percutaneous Approach (ICD-10-PCS; 2025-05-13)
PROC: 0DC68ZZ Extirpation of Matter from Stomach, Via Natural or Artificial Opening Endoscopic (ICD-10-PCS; 2025-05-14)
PROC: XW0G886 Introduction of Mineral-based Topical Hemostatic Agent into Upper GI, Via Natural or Artificial Opening Endoscopic, New Technology Group 6 (ICD-10-PCS; 2025-05-14)
PROC: 0D598ZZ Destruction of Duodenum, Via Natural or Artificial Opening Endoscopic (ICD-10-PCS; 2025-05-14)
DX: K26.4 Chronic or unspecified duodenal ulcer with hemorrhage (principal); D62 Acute posthemorrhagic anemia; Z96.642 Presence of left artificial hip joint; K59.00 Constipation, unspecified; Z85.820 Personal history of malignant melanoma of skin; E78.00 Pure hypercholesterolemia, unspecified; Z88.1 Allergy status to other antibiotic agents; Z88.0 Allergy status to penicillin; Z79.01 Long term (current) use of anticoagulants; Z79.891 Long term (current) use of opiate analgesic; Z85.819 Personal history of malignant neoplasm of unspecified site of lip, oral cavity, and pharynx; Z79.82 Long term (current) use of aspirin; Z86.0100 Personal history of colon polyps, unspecified
CPT/HCPCS: 36430; 71046; 80048; 80053; 82607; 82728; 82746; 82962; 83540; 83550; 84484; 85014; 85018; 85025; 85027; 85610; 86850; 86900; 86901; 86920; 93005; 94760; 96374; 97162; 97530; 99285; P9016

== ENCOUNTER 2025-05-22 14:50 | Emergency (ER) | payer OTHER, SELFPAY ==
[2025-05-22 14:58] VITALS: BP 111/73
--- NOTE | 2025-05-22 17:15 | ED.GENMED ---
History of Present Illness
General
Chief Complaint: DVT/Possible Blood Clot
Source: patient
Exam Limitations: none
Time Seen by Provider: 05/22/25 16:01
Nursing documentation reviewed up to this point in time: agreed with
History of Present Illness
History of Present Illness:
79-year-old male with a past medical history of hypertension, hyperlipidemia, osteoarthritis, melanoma who presents to the ER for evaluation of left calf pain. Patient notably had left hip replacement [address] Chiu. He was started
on aspirin after surgery for DVT prophylaxis. Unfortunately a little over a week ago he developed GI bleeding and required admission to the hospital, endoscopy and aspirin was discontinued. He has been doing physical therapy for his left hip since
discharge. He says over the past few days he started to develop some left calf pain. Has not noticed any swelling or skin changes. He was concerned for DVT given recent surgery and hospitalization and so he came to the ER for assessment. Denies
any chest pain or shortness of breath or any other acute issues.
Past History
Past History
ED Past Medical History: Other (Tongue resection for cancer, left neck lymph node resection,)
Social History
Tobacco: Smoker
Alcohol: None
Family History
Family History: Unable to obtain
Review of Systems
Review of Systems
All Other Systems: ROS reviewed and negative except as documented in HPI and ROS
Respiratory: Denies trouble breathing
Cardiac: Denies chest pain
Musculoskeletal: Reports muscle pain; Denies edema
Phy Exam
Physical Exam
Physical Exam:
General: Well appearing and non-toxic
HEENT: protecting airway
Neck: appears supple
CV: No evidence of cyanosis
Resp: No accessory muscle use
Abd: Non-distended
Extremities: No deformities, no edema in the left lower extremity, strong popliteal, DP and PT pulse left lower extremity, mild tenderness along the lateral aspect of the left calf but no palpable cords
Neuro: Alert
Psych: Normal affect
Skin: Intact
Scores
Heart Failure Risk
Heart Failure Risk Score: Not Applicable
Heart Score for Chest Pain Patients
STEMI patient?: Not applicable
Withdrawal Assessment of Alcohol
Withdrawal Assessment Completed?: Not applicable
Course
Orders/Labs/Results
Orders:
Orders
05/22/25 14:51
Legs, left US [US Periph Venous LOWER Ext LT] Urgent
Comment:
Reason For Exam: pain
Vital Signs
Initial and Last Documented VS:
Initial Vital Signs
Temp Pulse Resp BP Pulse Ox
36.8 C 105 20 111/73 98
05/22/25 14:58 05/22/25 14:58 05/22/25 14:58 05/22/25 14:58 05/22/25 14:58
Last Documented Vital Signs
Temp Pulse Resp BP Pulse Ox
36.8 C 105 20 111/73 98
05/22/25 14:58 05/22/25 14:58 05/22/25 14:58 05/22/25 14:58 05/22/25 14:58
MDM/Problems Addressed
Differential Diagnosis Includes:
DVT, calf strain; strong palpable pulses, warm extremity�low suspicion for claudication; no skin changes to suggest cellulitis
MDM/Problems Addressed:
79-year-old male presents for evaluation of left calf pain after recent hip surgery as well as hospitalization for GI bleeding. Vitals and exam as above. Sent for an ultrasound of the left lower extremity which was negative for DVT. Suspect
likely calf strain in the setting of recent therapy for hip replacement. Stable for discharge. Spoke about follow-up plan and return precautions and all questions answered.
*Radiology
Radiology exam reviewed: radiology read reviewed
*Pulse Oximetry
SaO2: 98
Oxygen Mode of Delivery: Room air
Patient hypoxic: no (98%)
*Critical Care Note
Total Time (30-74mins, 75-104mins- exclusive of procedures): Not Applicable
Data Reviewed
Review of Other/Old Records Reveals: Records and Discharge Summary
Source: patient and records
ED Attending Note
-
Portions of this chart may have been created with voice recognition software.� Occasional wrong word or��sound alike� substitutions may have occurred due to the inherent limitations of voice recognition software.
Discharge Plan
Departure
Patient Disposition: Home (Routine Discharge)
Date of Disposition: 05/22/25
Time of Disposition: 16:17
Patient with high blood pressure during this ER visit?: No
Discharge Problem:
Pain of left calf
Instructions: Lower Extremity Muscle Strain (DC)
Prescriptions:
No Action
simvastatin 40 MG tablet
40 mg PO QPM
polyethylene glycol 3350 17 GRAMS powder in packet
17 grams PO DAILYPRN PRN (Reason: constipation) Qty: 1 0RF
acetaminophen [Tylenol Extra Strength] 500 MG tablet
1,000 mg PO Q6HPRN PRN (Reason: mild pain) Qty: 1 0RF
oxycodone 5 MG tablet
5 mg PO Q4HPRN PRN (Reason: breakthrough/severe pain) Qty: 7 0RF
pantoprazole 40 mg Tablet,Delayed Release (Dr/Ec)
40 mg PO BID 30 Days Qty: 60 0RF
(DME) Outpatient Physical Therapy
See Rx Instructions .Route .MEDSUPPLY Qty: 1 0RF
Rx Instructions:
As directed
Referrals:
Kyle Scherer MD [Family Provider, Internal Medicine] - Follow up in 1 week
Activity Restrictions/Additional Instructions:
Thank you for visiting the Emergency Department at [facility].
1. Please schedule a follow up appointment as directed. Call first thing tomorrow morning to make an appointment.
2. If indicated, please take your medications as instructed and indicated on discharge paperwork.
3. If any of your symptoms do not improve, or persist, or become more severe within 6-12 hours, please return to the emergency department for further care.
4. Please return to the emergency department if you develop a headache, neck pain/stiffness, fever greater than 100.4F, chest pain, shortness of breath, persistent nausea, vomiting, slurred speech, difficulty walking, numbness/tingling, weakness,
signs of infection or any other symptoms that are worrisome to you.
Please call [phone] if you have any questions.
Interventions
Interventions:
*Risk Screen - Suicide Last Done: 05/22/25 14:58
*General Assessment Last Done: 05/22/25 14:58
*Neglect/Abuse Screening Last Done: 05/22/25 14:58
*Nursing Disposition Last Done: 05/22/25 16:30
Discharge Date and Time
Discharge Date/Time: 05/22/25 16:30
Print Language: [id number]
== END 2025-05-22 16:30 | disposition home or self-care (01) ==
LOC: EMR 14:50
PROVIDERS: EMERGENCY PHYSICIAN Emergency Medicine; FAMILY PHYSICIAN Internal Medicine
DX: M79.662 Pain in left lower leg (principal); I10 Essential (primary) hypertension; E78.00 Pure hypercholesterolemia, unspecified; M19.90 Unspecified osteoarthritis, unspecified site; F17.200 Nicotine dependence, unspecified, uncomplicated; Z85.820 Personal history of malignant melanoma of skin; Z96.642 Presence of left artificial hip joint
CPT/HCPCS: 99284; 93971

== ENCOUNTER → 2025-05-23 12:59 | Outpatient (REF) | payer OTHER, SELFPAY | LOC: RAD 12:59 | PROVIDERS: ATTENDING PHYSICIAN Physician Assistant; FAMILY PHYSICIAN Physician Assistant Medical | DX: D50.0 Iron deficiency anemia secondary to blood loss (chronic) (principal); R22.31 Localized swelling, mass and lump, right upper limb | CPT/HCPCS: 93971 ==

== ENCOUNTER → 2025-05-30 08:51 | Outpatient (REF) | payer OTHER, SELFPAY | LOC: RAD 08:51 | PROVIDERS: ATTENDING PHYSICIAN Physician Assistant | DX: I82.619 Acute embolism and thrombosis of superficial veins of unspecified upper extremity (principal) | CPT/HCPCS: 93971 ==

== ENCOUNTER 2025-06-12 10:19 | Outpatient (RCR) | payer OTHER, SELFPAY | END 2025-06-12 23:59 | disposition home or self-care (01) | LOC: RPT 10:19 | PROVIDERS: ATTENDING PHYSICIAN Specialist; FAMILY PHYSICIAN Internal Medicine | DX: Z47.1 Aftercare following joint replacement surgery (principal); Z73.6 Limitation of activities due to disability; Z96.642 Presence of left artificial hip joint; R26.2 Difficulty in walking, not elsewhere classified; M62.81 Muscle weakness (generalized); R26.89 Other abnormalities of gait and mobility | CPT/HCPCS: 97110; 97112; 97164; 97530 ==

== ENCOUNTER 2025-06-19 11:03 | Outpatient (RCR) | payer OTHER, SELFPAY | END 2025-06-20 14:41 | disposition home or self-care (01) | LOC: RPT 11:03 | PROVIDERS: ATTENDING PHYSICIAN Specialist; FAMILY PHYSICIAN Internal Medicine | DX: Z47.1 Aftercare following joint replacement surgery (principal); Z73.6 Limitation of activities due to disability; R26.2 Difficulty in walking, not elsewhere classified; M62.81 Muscle weakness (generalized); R26.89 Other abnormalities of gait and mobility; Z96.642 Presence of left artificial hip joint | CPT/HCPCS: 97110; 97530 ==

== ENCOUNTER → 2025-09-12 09:11 | Outpatient (REF) | payer OTHER, SELFPAY | LOC: HWRAD 09:11 | PROVIDERS: ATTENDING PHYSICIAN Physician Assistant Medical | DX: R10.31 Right lower quadrant pain (principal) | CPT/HCPCS: 76882 ==

== ENCOUNTER → 2025-09-22 09:33 | Outpatient (REF) | payer OTHER, SELFPAY | LOC: WDC 09:33 | PROVIDERS: ATTENDING PHYSICIAN Physician Assistant Medical | DX: M79.89 Other specified soft tissue disorders (principal) | CPT/HCPCS: 76642; 77062; 77066 ==